=== PATIENT | male | born 1985 | race Caucasian/White ===

== ENCOUNTER 2024-07-24 12:10 | Emergency (ER) | payer BC | END 2024-07-24 12:58 | disposition home or self-care (01) | LOC: MADERS 12:10 | DX: R20.2 Paresthesia of skin (principal); I10 Essential (primary) hypertension; K21.9 Gastro-esophageal reflux disease without esophagitis; Z79.899 Other long term (current) drug therapy | CPT/HCPCS: 99283 ==